=== PATIENT | female | born 1995 | race Caucasian/White ===

== ENCOUNTER 2019-01-23 15:11 | Emergency (ER) | payer BC, OTHER ==
--- NOTE | 2019-01-23 16:08 | RAD ---
2 view chest: CLINICAL HISTORY: Seatbelt abrasion, injury COMPARISON: None FINDINGS: There is no focal consolidation, effusion, or pneumothorax. Cardiac silhouette is normal in size. No acute osseous abnormality. IMPRESSION: No focal consolidation.
== END 2019-01-23 17:07 | disposition home or self-care (01) ==
LOC: ERS 15:11
DX: S10.91XA Abrasion of unspecified part of neck, initial encounter (principal); S80.811A Abrasion, right lower leg, initial encounter; I10 Essential (primary) hypertension; Z79.899 Other long term (current) drug therapy; V43.52XA Car driver injured in collision with other type car in traffic accident, initial encounter
CPT/HCPCS: 71046